=== PATIENT | female | born 1950 | race African-American/Black ===

== ENCOUNTER 2018-03-14 11:37 | Emergency (ER) | payer SELFPAY ==
[~2018-03-14] VITALS: Ht 160 cm; Wt 90.7 kg
[2018-03-14 12:09] VITALS: BP 156/96
--- NOTE | 2018-03-14 12:35 | Emergency Room Report ---
History of Present Illness General Chief Complaint: Medication Refill Source: Patient Present Illness HPI 67 YO Female presents to the ED c/o running out of her lisinopril x 3 days. pt. reports she is having trouble with her insurance. She also has progressive dull 5/10 in severity FINNEGAN comes and goes, no visual changes, nausea or vomiting. pt. reports she get headaches when her bp is high. pt. reports that this FINNEGAN is similar to FINNEGAN's previously experienced. She denies fevers, chills, fatigue or weakness. Pt. also reports intermittent swelling at the end of the day of feet bilaterally resolves over night. Denies CP, Palpitations, LOC, AMS, dizziness, Changes in Vision, Sensation, paresthesias, or a sudden severe headache. Allergies: Uncoded Allergies: HCT (Allergy, Unknown, 03/14/18) Patient History Past Medical History: see triage record Past Surgical History: none Pertinent Family History: none Now: No Reviewed Nursing Documentation: PMH: Agreed; PSxH: Agreed Nursing Documentation-PMH Past Medical History: No History, Except For Hx Hypertension: Yes Review of Systems All Other Systems: negative except mentioned in HPI Physical Exam Vital Signs Date Time Temp Pulse Resp B/P (MAP) Pulse Ox O2 Delivery O2 Flow Rate FiO2 03/14/18 11:59 97.9 81 18 156/96 97 Room Air 97.9 Sp02 EP Interpretation: reviewed, normal General Appearance: no apparent distress, alert, GCS 15, non-toxic Head: normocephalic, atraumatic Eyes: bilateral eye normal inspection, bilateral eye PERRL ENT: hearing grossly normal, normal voice Neck: full range of motion Respiratory: chest non-tender, lungs clear, normal breath sounds, no respiratory distress, no wheezing, speaking full sentences Cardiovascular #1: regular rate, rhythm, no edema, normal capillary refill Musculoskeletal: back normal, gait/station normal, normal range of motion Neurologic: alert, oriented x3, responsive, motor strength/tone normal, sensory intact, normal gait, speech normal, grossly normal Psychiatric: judgement/insight normal Skin: normal color, no rash, warm/dry, well hydrated Medical Decision Making PA Attestation Dr. Brar is my supervising Physician whom patient management has been discussed with. Diagnostic Impression: Primary Impression: Encounter for medication refill Additional Impression: Head ache Qualified Codes: R51 - Headache ER Course 67 YO Female presents to the ED c/o running out of her lisinopril x 3 days. pt. reports she is having trouble with her insurance. She also has progressive dull 5/10 in severity FINNEGAN comes and goes, no visual changes, nausea or vomiting. pt. reports she get headaches when her bp is high. pt. reports that this FINNEGAN is similar to FINNEGAN's previously experienced. She denies fevers, chills, fatigue or weakness. Pt. also reports intermittent swelling at the end of the day of feet bilaterally resolves over night. Denies CP, Palpitations, LOC, AMS, dizziness, Changes in Vision, Sensation, paresthesias, or a sudden severe headache. Ddx considered but are not limited to: drug seeking, OD, HTN urgency, need for medication refill. Vital signs: are WNL, pt. is afebrile H&PE are most consistent with need for medication refill. - no Focal neurological deficits, pt. is NAD, non toxic in appearance. ORDERS: none required at this time, the diagnosis is clinical ED INTERVENTIONS: -Lisinopril PO -Tylenol PO DISCHARGE: At this time pt. is stable for d/c to home. Will provide printed patient care instructions, and any necessary prescriptions. Care plan and follow up instructions have been discussed with the patient prior to discharge. Last Vital Signs Date Time Temp Pulse Resp B/P (MAP) Pulse Ox O2 Delivery O2 Flow Rate FiO2 03/14/18 12:09 97.9 81 18 156/96 97 Room Air 97.9 Disposition: HOME, SELF-CARE Condition: Stable Scripts Lisinopril (LISINOPRIL*) 20 Mg Tablet 20 MG ORAL DAILY, #30 TAB 1 Refill Prov: Seda Nevarez 03/14/18 Patient Instructions: Medicine Refill at the Emergency Department Additional Instructions: Take medications as directed. Follow up with a Primary Care Provider in 3-5 days, even if your symptoms have resolved. --Please review list of primary care clinics, if you do not already have a primary care provider Return sooner to ED if new symptoms occur, or current symptoms become worse. - Please note that this Emergency Department Report was dictated using [employer] line bus cleaner technology software, occasionally this can lead to erroneous entry secondary to interpretation by the dictation equipment. Seda Nevarez Mar 14, 2018 12:35
[2018-03-14] MEDS ORDERED: LISINOPRIL20 MG ORAL (12:36)
[2018-03-14] MEDS ORDERED: Lisinopril 10mg tab ORAL ONE (12:45)
[2018-03-14 13:25] VITALS: BP 153/100
== END 2018-03-14 13:20 | disposition home or self-care (01) ==
LOC: EMR 13:20
DX: Z76.0 Encounter for issue of repeat prescription (principal); R51 Headache; I10 Essential (primary) hypertension
CPT/HCPCS: 99283